=== PATIENT | female | born 1970 | race African-American/Black ===

== ENCOUNTER 2018-06-04 10:33 | Emergency (ER) | payer BC, OTHER ==
[~2018-06-04] VITALS: Ht 154.9 cm; Wt 54.4 kg
[~2018-06-04 10:33] MED LIST: NOHOMEMEDICATIONS; NORFLEX100 MG PO
[2018-06-04 11:31] LABS: HEMATOCRIT 40.6 % (37.0-47.0); HEMOGLOBIN 14.3 gm/dL (12.0-15.0); MCH 31.1 pg (26.0-34.0); MCHC 35.2 g/dL (28.0-37.0); MCV 88.3 fL (80.0-100.0); PLATELET COUNT 192 thou/uL (150-400); RDW 12.3 % (10.5-14.5); WBC 5.3 thou/uL (4.0-11.0)
[2018-06-04 11:38] LABS: CREATININE 0.8 mg/dL (0.6-1.0); POTASSIUM 3.8 mmol/L (3.5-5.1)
[2018-06-04 11:48] LABS: ABSOLUTE NEUTROPHILS 2.9 thou/uL (1.4-8.2); PLATELET ESTIMATE NORMAL
[2018-06-04] MEDS ORDERED: REGLAN 10 MG TA10 MG PO (12:58)
[2018-06-04 13:17] VITALS: BP 101/66
== END 2018-06-04 13:18 | disposition home or self-care (01) ==
LOC: ER 10:33
PROVIDERS: Physician Assistant
DX: R51 Headache (principal); Z98.890 Other specified postprocedural states; Z88.5 Allergy status to narcotic agent; Z88.6 Allergy status to analgesic agent